=== PATIENT | male | born 1985 | race Caucasian/White ===

== ENCOUNTER 2019-06-01 18:53 | Emergency (ER) | payer MEDICAID ==
[2019-06-01] MEDS ORDERED: Bacitracin Oint 1 GM U/D Packet TOP ONE (19:13)
--- NOTE | 2019-06-01 19:16 | EDM.PDOC ---
ED HPI GENERAL MEDICAL PROBLEM - General Chief Complaint: Laceration Stated Complaint: LEFT THUMB LACERATION Time Seen by Provider: 06/01/19 19:14 Source of Information: Reports: Patient History Limitations: Reports: No Limitations - History of Present Illness INITIAL COMMENTS - FREE TEXT/NARRATIVE: pt has a flap type laceration on the left thumb. He had a tetanus booster in 2011. pt was cooking today and ended up with the laceration. Onset: Today, Sudden Duration: Hour(s): Location: Reports: Upper Extremity, Left Associated Symptoms: Reports: No Other Symptoms - Related Data Allergies Allergy/AdvReac Type Severity Reaction Status Date / Time No Known Allergies Allergy Verified 06/01/19 19:05 Home Meds: Home Meds NK [No Known Home Meds] 06/01/19 [History] Past Medical History - Past Health History Medical/Surgical History: Denies Medical/Surgical History Social & Family History - Tobacco Use Smoking Status *Q: Current Every Day Smoker Years of Tobacco use: 15 Packs/Tins Daily: 2 ED ROS GENERAL - Review of Systems Review Of Systems: See Below Constitutional: Reports: No Symptoms HEENT: Reports: No Symptoms Respiratory: Reports: No Symptoms Cardiovascular: Reports: No Symptoms Endocrine: Reports: No Symptoms GI/Abdominal: Reports: No Symptoms : Reports: No Symptoms Musculoskeletal: Reports: Other (pt has a flap type laceration on the vincent aspect pf his left thumb. ) ED EXAM, SKIN/RASH Exam: See Below Text/Narrative:: pt rrived with a 1/4 inch laceration flap type on the outer vincent aspect of the thumb. This was fairly superficial but was bleeding readily. Exam Limited By: No Limitations General Appearance: Alert Extremities: Other ( 1/4 inch laceration on the vincent aspect of the l;eft thumb. ) Neurological: Alert, Oriented, Normal Cognition Course - Vital Signs Last Recorded V/S: Last Vital Signs Temp 36.0 C L 06/01/19 19:11 Pulse 71 06/01/19 19:11 Resp 14 06/01/19 19:11 BP 116/65 06/01/19 19:11 Pulse Ox 98 06/01/19 19:11 - Orders/Labs/Meds Meds: Medications Discontinued Medications Generic Name Dose Route Start Last Admin Trade Name Freq PRN Reason Stop Dose Admin Bacitracin 1 dose 06/01/19 19:13 06/01/19 19:20 Bacitracin Oint 1 Gm TOP 06/01/19 19:14 1 dose ONETIME ONE Administration Lidocaine HCl 5 ml 06/01/19 19:13 06/01/19 19:20 Xylocaine-Mpf 1% INJECT 06/01/19 19:14 5 ml ONETIME ONE Administration - Re-Assessments/Exams Free Text/Narrative Re-Assessment/Exam: 06/01/19 19:37 The wound was cleansed well and infiltrated with lidocaine. It was closed with 45-0 prolene-- 4 stitches. A dressing with bacatracin was applied. Pt had a tetanus shot last in 2011. Departure - Departure Time of Disposition: 19:33 Disposition: Home, Self-Care 01 Condition: Fair Clinical Impression: Laceration - Discharge Information Instructions: Laceration Care, Adult, [id number] Referrals: PCP,None [Primary Care Provider] - Forms: ED Department Discharge Care Plan Goals: keep dry, apply clean dry dressing daily, no further ointments, use splint at work to protect the laceration, suture removal in 7-8 days. Sepsis Event Note - Evaluation Sepsis Screening Result: No Definite Risk - Focused Exam Date Exam was Performed: 06/05/19 Time Exam was Performed: 07:46
== END 2019-06-01 19:49 | disposition home or self-care (01) ==
LOC: JP.ED 18:53
DX: S61.012A Laceration without foreign body of left thumb without damage to nail, initial encounter (principal); F17.210 Nicotine dependence, cigarettes, uncomplicated; W26.9XXA Contact with unspecified sharp object(s), initial encounter; Y93.G3 Activity, cooking and baking
CPT/HCPCS: 12001; 99282; J2001